=== PATIENT | male | born 1965 | race Hispanic/Latino ===

== ENCOUNTER 2018-12-31 05:35 | Day surgery (SDC) | payer MEDICAID ==
[~2018-12-31] VITALS: Ht 154.9 cm; Wt 73.0 kg
[~2018-12-31 05:35] MED LIST: ASPI-555 PO; INSU100I35 SQ; INSU3INS5 SQ; LOSA25TA41 PO; METF-444 PO
[2018-12-31] MEDS ORDERED: SODIUM CHLORIDE 0.9% 1000ML 1,000 ML IV ONE (05:47)
[2018-12-31 05:59] VITALS: BP 148/75
[2018-12-31 08:38] VITALS: BP 125/71
[2018-12-31 08:43] VITALS: BP 118/69
[2018-12-31 08:48] VITALS: BP 120/69
[2018-12-31 08:53] VITALS: BP 126/69
[2018-12-31 08:58] VITALS: BP 123/69
--- NOTE | 2018-12-31 08:58 | NUR ---
dc dc intructions given to pts son , instructed to f/u with dr. shipley, that colonoscopy to be repeated on thursday01-03-19, pt son and patient stated cannot do it then he has another appointment, that he will f/u with dr. shipley on 01-07 and speak to her about another f/u day for colonoscopy.
--- NOTE | 2018-12-31 09:20 | NUR ---
DC PT DC HOME VIA WC, NO DISTRESS NOTED. ACCOMPANIED BY SON, PT DENIED ANY PAIN OR DISCOMFORTS.
== END 2018-12-31 09:20 | disposition home or self-care (01) ==
LOC: ENDO 05:35 → DAH 05:35 → ENDO 09:20
PROVIDERS: ATTEND Internal Medicine
DX: D64.9 Anemia, unspecified (principal); K29.50 Unspecified chronic gastritis without bleeding; B96.81 Helicobacter pylori [H. pylori] as the cause of diseases classified elsewhere; K22.8 Other specified diseases of esophagus; K31.89 Other diseases of stomach and duodenum; E11.22 Type 2 diabetes mellitus with diabetic chronic kidney disease; I12.9 Hypertensive chronic kidney disease with stage 1 through stage 4 chronic kidney disease, or unspecified chronic kidney disease; N18.3 Chronic kidney disease, stage 3 (moderate); F17.200 Nicotine dependence, unspecified, uncomplicated; Z79.4 Long term (current) use of insulin; Z79.899 Other long term (current) drug therapy; Z79.82 Long term (current) use of aspirin; Z98.890 Other specified postprocedural states
CPT/HCPCS: 43239; 82948 ×2; 88305; A4606; J7030